=== PATIENT | female | born 1940 | race Caucasian/White ===

== ENCOUNTER 2018-05-08 18:49 | Observation (INO) | payer MEDICARE ==
[~2018-05-08] VITALS: Ht 149.9 cm; Wt 68.1 kg
[~2018-05-08 18:49] MED LIST: AMAN100C12 PO; BENZ-39 PO; BISA5TAB12 PO; CARB1TAB20 PO; CARV6.25 PO; CHOL200016 PO; CLOP75TA14 PO; CYCL30DR OU; DIVA-78 PO; DONE10TA43 PO; FAMO-135 PO; FEBU80TA PO; FURO20TA4 PO; LACT10SO8 PO; LACT10SO9 PO; LOPE2CAP PO; LORA10TA7 PO; LORA1TAB3 PO; OLAN5TAB27 PO; POTA20TA12 PO; SACU1TAB PO; WARF2.5T47 PO; WARF5TAB76 PO
[2018-05-08] MEDS ORDERED: IPRATROPIUM/ALBUTEROL SULFATE 3 ML SOLUTION IH ONE (19:19)
[2018-05-08] MEDS ORDERED: METHYLPREDNISOLONE SOD SUCC 125MG/2ML VIAL ONE (19:29)
[2018-05-08 19:30] LABS: ABG OXYGEN SATURATION 46.9 % (95.0-99.0); BASE EXCESS,VENOUS BLOOD GAS -1.9 (-2.0-3.0); HCO3,VENOUS BLOOD GAS 21.6 (21.0-28.0); PCO2,VENOUS BLOOD GAS 34 (32-45); PH,VENOUS BLOOD GAS 7.425 (7.350-7.450)
[2018-05-08 19:40] LABS: BASOPHILS % (AUTO) 0.3 % (0.0-5.0); EOSINOPHILS % (AUTO) 0.4 % (0.0-8.0); HEMATOCRIT 21.8 % (36-48); LYMPHOCYTES % (AUTO) 19.4 % (21.0-51.0); MEAN CORPUSCULAR HGB CONC 32.5 g/dL (32.0-36.0); MEAN CORPUSCULAR VOLUME 98.4 fL (79-99); NEUTROPHILS % (AUTO) 65.9 % (40.0-77.0); PLATELET COUNT (AUTO) 420 K/uL (130-400); RED BLOOD CELL COUNT(AUTO) 2.21 MIL/uL (4.00-5.50); RED CELL DISTRIBUTION WIDTH 13.1 % (11.0-15.5); WHITE BLOOD COUNT (AUTO) 17.8 K/uL (4.8-10.8)
[2018-05-08 19:52] LABS: CREATININE 1.2 mg/dL (0.5-1.5); POTASSIUM 4.2 mmol/L (3.5-5.1)
[2018-05-08 19:57] LABS: ALBUMIN 2.9 g/dL (3.5-5.0); BILIRUBIN,TOTAL 0.2 mg/dL (0.2-1.0); TOTAL PROTEIN, SERUM 5.7 g/dL (6.0-8.3)
[2018-05-08 20:04] LABS: B-TYPE NATRIURETIC PEPTIDE 208 pg/mL (0-100)
[2018-05-08] MEDS ORDERED: SODIUM CHLORIDE 0.9% 1000ML 2,000 ML IV ONE (20:50)
[2018-05-08] MEDS ORDERED: CEFTRIAXONE SODIUM 1 GM ONE (20:51)
[2018-05-08] MEDS ORDERED: AZITHROMYCIN 500MG+NS 250ML 250 ML IV ONE (20:51)
[2018-05-08] MEDS ORDERED: SODIUM CHLORIDE 0.9% 10 ML VIAL IVP PRN (21:30)
[2018-05-08] MEDS ORDERED: IPRATROPIUM/ALBUTEROL SULFATE 3 ML SOLUTION IH PRN (21:30)
[2018-05-08 23:10] VITALS: BP 106/52
[2018-05-08] MEDS: IPRATROPIUM/ALBUTEROL SULFATE 3 ML SOLUTION IH SCH (23:57)
[2018-05-09] MEDS: LEVOFLOXACIN 750 MG/D5W 150 ML 150 ML IV SCH ×2 (00:10→22:00)
[2018-05-09] MEDS ORDERED: LORAZEPAM 1 MG TABLET PO PRN (01:15)
[2018-05-09] MEDS ORDERED: BISACODYL 5 MG TABLET.DR PO PRN (01:15)
[2018-05-09] MEDS ORDERED: BENZONATATE 100 MG CAPSULE PO PRN (01:15)
[2018-05-09] MEDS ORDERED: LACTULOSE 20 GM/30 ML UDCUP PO PRN ×2 (01:15)
[2018-05-09] MEDS ORDERED: LOPERAMIDE HCL 2 MG CAP PO PRN (01:15)
[2018-05-09 03:00] VITALS: BP 116/55
[2018-05-09] MEDS: METHYLPREDNISOLONE SOD SUCC 125MG/2ML VIAL IVP SCH ×4 (05:20→21:41)
[2018-05-09 05:27] LABS: MEAN CORPUSCULAR HEMOGLOBIN 32.3 pg (27.0-33.0); MEAN CORPUSCULAR HGB CONC 33.3 g/dL (32.0-36.0); NUCLEATED RED BLOOD CELLS 0.3 % (0.0-0.19); PLATELET COUNT (AUTO) 362 K/uL (130-400); RED BLOOD CELL COUNT(AUTO) 2.11 MIL/uL (4.00-5.50); RED CELL DISTRIBUTION WIDTH 13.1 % (11.0-15.5)
[2018-05-09 05:34] LABS: HEMATOCRIT 20.4 % (36-48)
[2018-05-09 05:40] LABS: INR 1.02 (0.85-1.15); PARTIAL THROMBOPLASTIN TIME 20.1 SEC (26.3-35.5); PROTHROMBIN TIME 10.7 SEC (9.6-11.6)
[2018-05-09 05:43] LABS: ALBUMIN 2.8 g/dL (3.5-5.0); BILIRUBIN,TOTAL 0.2 mg/dL (0.2-1.0); CREATININE 1.1 mg/dL (0.5-1.5); POTASSIUM 5.1 mmol/L (3.5-5.1); TOTAL PROTEIN, SERUM 5.8 g/dL (6.0-8.3)
[2018-05-09 07:00] VITALS: BP 107/57
[2018-05-09] MEDS: IPRATROPIUM/ALBUTEROL SULFATE 3 ML SOLUTION IH SCH ×4 (07:13→23:25)
[2018-05-09] MEDS ORDERED: LIDOCAINE HCL-MPF 1% 2ML VIAL IVP PRN (07:45)
[2018-05-09] MEDS ORDERED: POTASSIUM CHLORIDE 20MEQ/100ML 100 ML IV PRN (07:45)
[2018-05-09] MEDS ORDERED: POTASSIUM CHLORIDE 20 MEQ ERTAB PO PRN (07:45)
[2018-05-09] MEDS ORDERED: FUROSEMIDE 10 MG/ML 2ML VIAL IV SCH (07:45)
[2018-05-09] MEDS ORDERED: POTASSIUM CHLORIDE 10% ELIXIR 20 MEQ/15 ML UDCUP PO PRN (07:45)
[2018-05-09] MEDS: POTASSIUM CHLORIDE 20 MEQ ERTAB PO SCH ×2 (09:00→21:00)
[2018-05-09] MEDS: FUROSEMIDE 20 MG TABLET PO SCH (09:00)
[2018-05-09] MEDS: CYCLOSPORINE OU SCH (09:00)
[2018-05-09] MEDS: ***HM***(Sacubitril/Valsartan (Entresto 24 mg-26 mg Tablet) 1 EACH PO SCH ×2 (09:00→21:00)
[2018-05-09] MEDS: CHOLECALCIFEROL 2000 UNIT PO SCH (09:00)
[2018-05-09] MEDS: CARBIDOPA-LEVODOPA 25-100 TAB PO SCH ×3 (09:00→21:41)
[2018-05-09] MEDS ORDERED: PANTOPRAZOLE 40 MG/VIAL IVP SCH (09:00)
[2018-05-09] MEDS: CLOPIDOGREL BISULFATE 75 MG TAB PO SCH (09:55)
[2018-05-09] MEDS: DONEPEZIL HCL 5 MG TAB PO SCH (09:55)
[2018-05-09] MEDS: CARVEDILOL 6.25 MG TABLET PO SCH ×2 (09:56→21:41)
[2018-05-09] MEDS: AMANTADINE HCL 100 MG CAPSULE PO SCH (09:56)
[2018-05-09] MEDS: FAMOTIDINE 20MG TAB 20 MG TAB PO SCH (09:56)
[2018-05-09] MEDS: DIVALPROEX SODIUM 250 MG TABLET.DR PO SCH ×2 (09:57→21:41)
[2018-05-09] MEDS: IRON SUCROSE COMPLEX 200 MG in SODIUM CHLORIDE 0.9% 50 ML IV SCH (09:58)
[2018-05-09] MEDS: LORATADINE 10 MG TABLET PO SCH (10:05)
[2018-05-09] MEDS ORDERED: SODIUM CHLORIDE 0.9% 250 ML IV ONE (10:46)
[2018-05-09 11:00] VITALS: BP 101/52
[2018-05-09] MEDS ORDERED: COMPOUND IV MISC 1 EACH IVSOLN MISC PRN (12:45)
[2018-05-09 16:00] VITALS: BP 113/53
[2018-05-09] MEDS ORDERED: WARFARIN SODIUM 5 MG TAB PO SCH (16:00)
[2018-05-09] MEDS ORDERED: WARFARIN SODIUM 2.5 MG TAB PO SCH (16:00)
--- NOTE | 2018-05-09 17:36 | NUR ---
cm note dr coats notified by Guerda matthews, RNCM dir. pt meets ip criteria. per md will reevaluate pt in am for admit status.leave obs for now
[2018-05-09 20:33] VITALS: BP 108/55
[2018-05-09] MEDS ORDERED: FEBUXOSTAT 80 MG PO SCH (21:00)
[2018-05-09] MEDS ORDERED: OLANZAPINE 5 MG TAB PO SCH (21:00)
[2018-05-09 23:14] LABS: HEMATOCRIT 28.4 % (36-48)
[2018-05-10 01:34] VITALS: BP 101/55
[2018-05-10 04:44] VITALS: BP 96/55
[2018-05-10 05:46] LABS: HEMATOCRIT 27.9 % (36-48); MEAN CORPUSCULAR HEMOGLOBIN 30.6 pg (27.0-33.0); MEAN CORPUSCULAR HGB CONC 33.8 g/dL (32.0-36.0); MEAN CORPUSCULAR VOLUME 90.4 fL (79-99); NUCLEATED RED BLOOD CELLS 0.5 % (0.0-0.19); PLATELET COUNT (AUTO) 280 K/uL (130-400); RED BLOOD CELL COUNT(AUTO) 3.08 MIL/uL (4.00-5.50); RED CELL DISTRIBUTION WIDTH 15.8 % (11.0-15.5); WHITE BLOOD COUNT (AUTO) 16.9 K/uL (4.8-10.8)
[2018-05-10 06:03] LABS: ALBUMIN 2.6 g/dL (3.5-5.0); BILIRUBIN,TOTAL 0.4 mg/dL (0.2-1.0); CREATININE 1.4 mg/dL (0.5-1.5); POTASSIUM 4.6 mmol/L (3.5-5.1); TOTAL PROTEIN, SERUM 5.2 g/dL (6.0-8.3)
[2018-05-10] MEDS: IPRATROPIUM/ALBUTEROL SULFATE 3 ML SOLUTION IH SCH ×2 (06:58→11:05)
[2018-05-10 07:00] VITALS: BP 99/52
[2018-05-10] MEDS ORDERED: FUROSEMIDE 10 MG/ML 4ML VIAL IV SCH (07:00)
[2018-05-10] MEDS ORDERED: PANTOPRAZOLE SODIUM 40 MG TABLET.DR PO SCH (08:28)
[2018-05-10] MEDS: IRON SUCROSE COMPLEX 200 MG in SODIUM CHLORIDE 0.9% 50 ML IV SCH (08:56)
[2018-05-10] MEDS: CLOPIDOGREL BISULFATE 75 MG TAB PO SCH (08:59)
[2018-05-10] MEDS: CHOLECALCIFEROL 2000 UNIT PO SCH (09:00)
[2018-05-10] MEDS: FUROSEMIDE 20 MG TABLET PO SCH (09:00)
[2018-05-10] MEDS: CYCLOSPORINE OU SCH (09:00)
[2018-05-10] MEDS: ***HM***(Sacubitril/Valsartan (Entresto 24 mg-26 mg Tablet) 1 EACH PO SCH (09:00)
[2018-05-10] MEDS: DIVALPROEX SODIUM 250 MG TABLET.DR PO SCH (09:00)
[2018-05-10] MEDS: DONEPEZIL HCL 5 MG TAB PO SCH (09:01)
[2018-05-10] MEDS: LORATADINE 10 MG TABLET PO SCH (09:01)
[2018-05-10] MEDS: CARBIDOPA-LEVODOPA 25-100 TAB PO SCH (09:01)
[2018-05-10] MEDS: CARVEDILOL 6.25 MG TABLET PO SCH (09:01)
[2018-05-10] MEDS: POTASSIUM CHLORIDE 20 MEQ ERTAB PO SCH (09:02)
[2018-05-10] MEDS: FAMOTIDINE 20MG TAB 20 MG TAB PO SCH (09:02)
[2018-05-10] MEDS: METHYLPREDNISOLONE SOD SUCC 125MG/2ML VIAL IVP SCH (09:05)
[2018-05-10] MEDS: AMANTADINE HCL 100 MG CAPSULE PO SCH (09:13)
[2018-05-10 11:00] VITALS: BP 114/49
== END 2018-05-10 12:30 | disposition home or self-care (01) ==
LOC: EDH 18:49 → EDHIP 20:40 → 3DH 23:52
PROVIDERS: ADMIT Internal Medicine; ATTEND Internal Medicine
DX: D50.0 Iron deficiency anemia secondary to blood loss (chronic) (principal); J18.9 Pneumonia, unspecified organism; I25.5 Ischemic cardiomyopathy; I25.10 Atherosclerotic heart disease of native coronary artery without angina pectoris; I48.91 Unspecified atrial fibrillation; J44.0 Chronic obstructive pulmonary disease with (acute) lower respiratory infection; D68.9 Coagulation defect, unspecified; J44.1 Chronic obstructive pulmonary disease with (acute) exacerbation; I11.0 Hypertensive heart disease with heart failure; I50.22 Chronic systolic (congestive) heart failure; F31.9 Bipolar disorder, unspecified; Z79.01 Long term (current) use of anticoagulants
CPT/HCPCS: 36415 ×3; 36430; 36600; 71045; 80053 ×3; 82803; 83880; 84484; 85014; 85018; 85025; 85027 ×2; 85610; 85730; 86850; 86900; 86901; 86922; 87040 ×2; 87804 ×2; 93005; 94640 ×8; 94664; 96365; 96366; 96375; 96376 ×2; 99284; A4600; G0378 ×40; J0456; J0696; J1756 ×2; J1940 ×2; J1956 ×2; J2930 ×5; J7030 ×2; P9016 ×2; C9113

== ENCOUNTER 2018-05-28 09:15 | Observation (INO) | payer MEDICARE ==
[~2018-05-28] VITALS: Ht 149.9 cm; Wt 67.8 kg
[2018-05-28] MEDS ORDERED: SODIUM CHLORIDE 0.9% 500ML 500 ML IV ONE (09:50)
[2018-05-28 10:30] LABS: BASOPHILS % (AUTO) 0.2 % (0.0-5.0); EOSINOPHILS % (AUTO) 0.8 % (0.0-8.0); HEMATOCRIT 33.2 % (36-48); LYMPHOCYTES % (AUTO) 13.4 % (21.0-51.0); MEAN CORPUSCULAR HEMOGLOBIN 32.7 pg (27.0-33.0); MEAN CORPUSCULAR HGB CONC 33.5 g/dL (32.0-36.0); MEAN CORPUSCULAR VOLUME 97.9 fL (79-99); MONOCYTES % (AUTO) 7.1 % (3.0-13.0); NEUTROPHILS % (AUTO) 78.5 % (40.0-77.0); PLATELET COUNT (AUTO) 212 K/uL (130-400); RED BLOOD CELL COUNT(AUTO) 3.39 MIL/uL (4.00-5.50); RED CELL DISTRIBUTION WIDTH 18.4 % (11.0-15.5); WHITE BLOOD COUNT (AUTO) 8.8 K/uL (4.8-10.8)
[2018-05-28 10:38] LABS: CREATININE 1.5 mg/dL (0.5-1.5); POTASSIUM 4.3 mmol/L (3.5-5.1)
[2018-05-28 10:42] LABS: ALBUMIN 2.8 g/dL (3.5-5.0); BILIRUBIN,DIRECT 0.2 mg/dL (0.0-0.3); BILIRUBIN,TOTAL 0.9 mg/dL (0.2-1.0); TOTAL PROTEIN, SERUM 5.4 g/dL (6.0-8.3)
[2018-05-28 10:45] LABS: CREATINE KINASE, TOTAL 12 U/L (21-232); LIPASE 98 U/L (114-286)
[2018-05-28 10:47] LABS: PARTIAL THROMBOPLASTIN TIME 24.3 SEC (26.3-35.5); PROTHROMBIN TIME 10.5 SEC (9.6-11.6)
[2018-05-28 11:01] LABS: BILIRUBIN,URINE Negative (NEGATIVE); COLOR,URINE Dark Yellow (YELLOW); GLUCOSE, URINE (UA) Negative (NEGATIVE); KETONES,URINE Trace mg/dL (NEGATIVE); LEUKOCYTE ESTERASE ,URINE Negative (NEGATIVE); NITRATE,URINE Negative (NEGATIVE); OCCULT BLOOD,URINE Negative (NEGATIVE); PROTEIN,URINE Negative (NEGATIVE)
[2018-05-28 11:25] LABS: APPEARANCE,URINE CLEAR (CLEAR)
[2018-05-28 11:27] LABS: BACTERIA,URINE Rare /HPF (None Seen); RBC,URINE 0-1 /HPF (0-1); SQUAMOUS EPITHELIAL CELL,UR Rare /HPF (0-2); WBC,URINE 0-1 /HPF (0-1)
[2018-05-28] MEDS ORDERED: SODIUM CHLORIDE 0.9% 10 ML VIAL IVP PRN (12:15)
[2018-05-28] MEDS ORDERED: SODIUM CHLORIDE 0.9% 1000ML 1,000 ML IV ONE (20:30)
[2018-05-28 22:34] LABS: HEMATOCRIT 31.7 % (36-48)
[2018-05-29 00:20] VITALS: BP 108/59
--- NOTE | 2018-05-29 00:20 | NUR ---
ADMIT PT ADMITTED TO ROOM 303,AAO BUT IS VERY FORGETFUL. ADMISSION CARE DONE. V/S MONITORED, STABLE. ADMISSION CARE DONE. ADMISSION DATA BASE COMPLETED. PT HAS EPISODE OF LOOSE STOOLS COLORED BURGUNDY. CLEANED PT AND NOTED REDNESS TO BILATERAL BUTTOCKS. PICTURES TAKEN THEN PLACED IN CHART. WEIGHED PT VIA SLING THEN PLACED COMFORTABLY IN BED. KEPT WARM AND COMFORTABLE. PLACED PT NPO PER DR GUMZAN ORDER. IN FOR MORE CARE AND MANAGEMENT. Addendum: 05/29/18 at 0131 by LIVE SAUCEDO RN RN Amended: Links added.
[2018-05-29] MEDS ORDERED: APIX2.5T PO (01:42)
[2018-05-29] MEDS ORDERED: LORAZEPAM 1 MG TABLET PO PRN (01:45)
[2018-05-29] MEDS ORDERED: BENZONATATE 100 MG CAPSULE PO PRN (01:45)
[2018-05-29] MEDS: SODIUM CHLORIDE 0.9% 1000ML 1,000 ML IV SCH ×3 (01:45→23:20)
[2018-05-29] MEDS ORDERED: BISACODYL 5 MG TABLET.DR PO PRN (01:45)
[2018-05-29] MEDS ORDERED: LOPERAMIDE HCL 2 MG CAP PO PRN (01:45)
[2018-05-29] MEDS ORDERED: LACTULOSE 20 GM/30 ML UDCUP PO PRN ×2 (01:45→06:45)
--- NOTE | 2018-05-29 02:24 | NUR ---
ROUNDS PT RESTING WELL, FAIRLY ASLEEP WITH RESPIRATIONS EVEN AND UNLABORED. NO NOTED DISTRESS. KEPT UNDISTURBED FOR NOW. WILL CONTINUE TO MONITOR.
[2018-05-29 04:00] VITALS: BP 123/59
[2018-05-29 05:33] LABS: HEMATOCRIT 30.3 % (36-48); MEAN CORPUSCULAR HEMOGLOBIN 32.7 pg (27.0-33.0); MEAN CORPUSCULAR HGB CONC 33.8 g/dL (32.0-36.0); MEAN CORPUSCULAR VOLUME 96.9 fL (79-99); PLATELET COUNT (AUTO) 180 K/uL (130-400); RED BLOOD CELL COUNT(AUTO) 3.13 MIL/uL (4.00-5.50); RED CELL DISTRIBUTION WIDTH 18.1 % (11.0-15.5); WHITE BLOOD COUNT (AUTO) 7.7 K/uL (4.8-10.8)
[2018-05-29 05:48] LABS: ALBUMIN 2.5 g/dL (3.5-5.0); BILIRUBIN,TOTAL 0.6 mg/dL (0.2-1.0); CREATININE 1.2 mg/dL (0.5-1.5); POTASSIUM 3.6 mmol/L (3.5-5.1); TOTAL PROTEIN, SERUM 5.1 g/dL (6.0-8.3)
--- NOTE | 2018-05-29 07:02 | NUR ---
MD DR LAI IN TO SEE PT. NEW ORDERS GIVEN, PLEASE REFER TO CPOE. ENDORSING TO AM SHIFT FOR MORE CARE AND MANAGEMENT.
[2018-05-29] MEDS ORDERED: COMPOUND IV MISC 1 EACH IVSOLN MISC PRN (07:45)
[2018-05-29 08:00] VITALS: BP 105/40
[2018-05-29] MEDS: AMANTADINE HCL 100 MG CAPSULE PO SCH (09:00)
[2018-05-29] MEDS: DONEPEZIL HCL 5 MG TAB PO SCH (09:00)
[2018-05-29] MEDS: LORATADINE 10 MG TABLET PO SCH (09:00)
[2018-05-29] MEDS: DIVALPROEX SODIUM 250 MG TABLET.DR PO SCH ×2 (09:00→21:36)
[2018-05-29] MEDS: CARVEDILOL 6.25 MG TABLET PO SCH ×2 (09:00→21:37)
[2018-05-29] MEDS: FUROSEMIDE 20 MG TABLET PO SCH (09:00)
[2018-05-29] MEDS: CARBIDOPA-LEVODOPA 25-100 TAB PO SCH ×3 (09:00→21:36)
[2018-05-29] MEDS: **HM** ENTRESTO 24-26MG PO SCH ×2 (09:00→21:00)
[2018-05-29] MEDS ORDERED: IRON SUCROSE COMPLEX 200 MG in SODIUM CHLORIDE 0.9% 50 ML IV SCH (09:00)
[2018-05-29] MEDS: FAMOTIDINE 20MG TAB 20 MG TAB PO SCH (09:00)
[2018-05-29] MEDS: **HM** RESTASIS OPTHL. OU SCH (09:00)
[2018-05-29] MEDS: POTASSIUM CHLORIDE 20 MEQ ERTAB PO SCH ×2 (09:00→21:36)
[2018-05-29] MEDS: [UNRECOGNIZED DRUG - OTHER] PO SCH (09:00)
[2018-05-29] MEDS: PANTOPRAZOLE 40 MG/VIAL IVP SCH (09:17)
--- NOTE | 2018-05-29 10:14 | NUR ---
C consult Patient assessed as ordered. [facility] recommendations submitted.
--- NOTE | 2018-05-29 10:25 | NUR ---
Nutrition Intervention: Nutrition consult due to admit trigger. Pt. admitted with Dx of Lower GI Bleed. Pt. asleep during visit. Pt. NPO. Labs reviewed(Alb 2.5). LBM: 05/29/18. SR-13, buttock redness. BMI: 30.2, overweight for age. Recommendations: 1) When medically feasible, rec. advance diet as tolerated to Heart Healthy diet with 30ml ProMod BID. 2) Continue to monitor pt's nutritional status and diet advancement 3) Consult RD as nutrition concerns arise. Addendum: 05/29/18 at [address] Amended: Links added.
--- NOTE | 2018-05-29 11:14 | NUR ---
TRIGGER RECEIVED. Pt IS A 77 YEAR OLD FEMALE ADMITTED SECONDARY TO LOWER GI BLEED. Pt HAS A PAST MEDICAL HISTORY SIGNIFICANT FOR ISCHEMIC CARDIOMYOPATHY, CORONARY ARTERY DISEASE, ATRIAL FIBRILLATION, ASTHMA, CHRONIC SYSTOLIC HEART FAILURE, AND BIPOLAR DISORDER. Pt CURRENTLY NPO PENDING PROCEDURE. PER Pt, SHE DOES NOT HAVE ANY ISSUES SWALLOWING AT THIS TIME. SHE STATES THAT SHE WAS DIAGNOSED WITH BRONCHITIS RECENTLY. NO HISTORY OF CVA OR DYSPHAGIA IN Pt'S PAST MEDICAL HISTORY. PLEASE REQUEST A FORMAL EVALUATION IF Pt PRESENTS WITH S/S OF ASPIRATION SUCH COUGHING, THROAT CLEARING OR WET VOCAL QUALITY AT MEAL TIMES. Addendum: 05/29/18 at 1118 by MAURO LUJAN [facility] Amended: Links added.
[2018-05-29 12:00] VITALS: BP 106/43
[2018-05-29 16:00] VITALS: BP 114/52
--- NOTE | 2018-05-29 19:50 | NUR ---
PM Assessment Received pt back from bleeding scan procedure with pending result, no family around. Routine assessment done, plan of care discuss, pt noted able to respond appropriately on simple open ended questions. Pt currently denies discomfort, stated live at [facility] living. Current IV access noted infiltrated, pt claimed felt sore, site swollen, negative blood return,discontinued aseptically, new site initiated aseptically to the right hand with good blood return.NS at 100cc/hr re-started. Pt aware plan d/c home tomorrow.
[2018-05-29 19:55] VITALS: BP 134/58
[2018-05-29] MEDS ORDERED: OLANZAPINE 5 MG TAB PO SCH (21:00)
[2018-05-30 00:07] VITALS: BP 93/42
[2018-05-30 03:50] VITALS: BP 120/63
[2018-05-30] MEDS ORDERED: PHARMACY COMMUNICATION MISC SCH (07:30)
[2018-05-30] MEDS ORDERED: IRON SUCROSE COMPLEX 200 MG in SODIUM CHLORIDE 0.9% 50 ML IV SCH (07:45)
[2018-05-30 08:00] VITALS: BP 112/54
[2018-05-30] MEDS: **HM** RESTASIS OPTHL. OU SCH (09:00)
[2018-05-30] MEDS: **HM** ENTRESTO 24-26MG PO SCH (09:00)
[2018-05-30] MEDS: [UNRECOGNIZED DRUG - OTHER] PO SCH (09:00)
[2018-05-30] MEDS: DONEPEZIL HCL 5 MG TAB PO SCH (10:03)
[2018-05-30] MEDS: DIVALPROEX SODIUM 250 MG TABLET.DR PO SCH (10:04)
[2018-05-30] MEDS: CARVEDILOL 6.25 MG TABLET PO SCH (10:04)
[2018-05-30] MEDS: CARBIDOPA-LEVODOPA 25-100 TAB PO SCH ×2 (10:04→14:09)
[2018-05-30] MEDS: AMANTADINE HCL 100 MG CAPSULE PO SCH (10:04)
[2018-05-30] MEDS: LORATADINE 10 MG TABLET PO SCH (10:04)
[2018-05-30] MEDS: FUROSEMIDE 20 MG TABLET PO SCH (10:05)
[2018-05-30] MEDS: FAMOTIDINE 20MG TAB 20 MG TAB PO SCH (10:05)
[2018-05-30] MEDS: POTASSIUM CHLORIDE 20 MEQ ERTAB PO SCH (10:05)
[2018-05-30] MEDS: PANTOPRAZOLE 40 MG/VIAL IVP SCH (10:06)
[2018-05-30] MEDS: SODIUM CHLORIDE 0.9% 1000ML 1,000 ML IV SCH (10:07)
[2018-05-30 12:00] VITALS: BP 108/62
[2018-05-30 16:00] VITALS: BP 104/79
--- NOTE | 2018-05-30 18:00 | NUR ---
PATIENT'S PROVIDER HERE TO TRANSPORT PATIENT BACK TO [place]. DISCHARGE INFORMATION GIVEN TO PATIENT . ALL QUESTIONS ANSWERED. IV DISCONTINUED WITH INNER CANNULA INTACT.
== END 2018-05-30 18:15 | disposition home or self-care (01) ==
LOC: EDH 09:15 → EDHIP 12:01 → 3AH 23:30
PROVIDERS: ADMIT Internal Medicine; ATTEND Internal Medicine
DX: K92.2 Gastrointestinal hemorrhage, unspecified (principal); I48.91 Unspecified atrial fibrillation; I25.5 Ischemic cardiomyopathy; I25.10 Atherosclerotic heart disease of native coronary artery without angina pectoris; I50.32 Chronic diastolic (congestive) heart failure; J44.9 Chronic obstructive pulmonary disease, unspecified; Z95.0 Presence of cardiac pacemaker; Z86.73 Personal history of transient ischemic attack (TIA), and cerebral infarction without residual deficits; Z79.01 Long term (current) use of anticoagulants
CPT/HCPCS: 36415 ×2; 74176; 78278; 80048; 80053; 80076; 81001; 82270; 82550; 83690; 84484; 85014; 85018; 85025; 85027; 85610; 85730; 86850; 86900; 86901; 87040 ×2; 93005 ×2; 96365; 96375; 96376; 99284; A9512; C9113 ×2; G0378 ×54; J1756 ×2; J7030; J7040

== ENCOUNTER 2018-06-19 16:38 | Emergency (ER) | payer MEDICARE ==
[~2018-06-19 16:38] MED LIST changes: +APIX2.5T PO; -FEBU80TA PO; -WARF2.5T47 PO; -WARF5TAB76 PO
== END 2018-06-19 19:49 | disposition home or self-care (01) ==
LOC: EDH 16:38
DX: S00.03XA Contusion of scalp, initial encounter (principal); G20 Parkinson's disease; I10 Essential (primary) hypertension; I25.10 Atherosclerotic heart disease of native coronary artery without angina pectoris; F03.90 Unspecified dementia, unspecified severity, without behavioral disturbance, psychotic disturbance, mood disturbance, and anxiety; E78.5 Hyperlipidemia, unspecified; Z86.73 Personal history of transient ischemic attack (TIA), and cerebral infarction without residual deficits; W01.198A Fall on same level from slipping, tripping and stumbling with subsequent striking against other object, initial encounter; Y93.01 Activity, walking, marching and hiking; Y92.89 Other specified places as the place of occurrence of the external cause; Y99.8 Other external cause status
CPT/HCPCS: 70450; 72125

== ENCOUNTER 2018-11-18 15:23 | Inpatient (IN) | payer MEDICARE ==
[~2018-11-18] VITALS: Ht 152.4 cm; Wt 65.4 kg
[2018-11-18 15:44] LABS: BASOPHILS % (AUTO) 0.5 % (0.0-5.0); EOSINOPHILS % (AUTO) 2.6 % (0.0-8.0); HEMATOCRIT 43.3 % (36-48); LYMPHOCYTES % (AUTO) 16.3 % (21.0-51.0); MEAN CORPUSCULAR HEMOGLOBIN 31.8 pg (27.0-33.0); MEAN CORPUSCULAR HGB CONC 33.5 g/dL (32.0-36.0); MEAN CORPUSCULAR VOLUME 94.9 fL (79-99); MONOCYTES % (AUTO) 10.6 % (3.0-13.0); PLATELET COUNT (AUTO) 244 K/uL (130-400); RED BLOOD CELL COUNT(AUTO) 4.56 MIL/uL (4.00-5.50); RED CELL DISTRIBUTION WIDTH 13.8 % (11.0-15.5); WHITE BLOOD COUNT (AUTO) 6.2 K/uL (4.8-10.8)
[2018-11-18] MEDS ORDERED: FUROSEMIDE 10 MG/ML 2ML VIAL ONE ×2 (15:56→16:31)
[2018-11-18] MEDS ORDERED: SODIUM CHLORIDE 0.9% 50 ML IV ONE (15:57)
[2018-11-18] MEDS ORDERED: CEFTRIAXONE SODIUM 1 GM ONE (15:57)
[2018-11-18 16:08] LABS: B-TYPE NATRIURETIC PEPTIDE 2420 pg/mL (0-100)
[2018-11-18] MEDS ORDERED: LEVOFLOXACIN 500 MG/D5W 100 ML 100 ML ONE (16:17)
[2018-11-18 16:38] LABS: POTASSIUM 4.9 mmol/L (3.5-5.1)
[2018-11-18 18:49] VITALS: BP 114/74
[2018-11-18] MEDS: FUROSEMIDE 10 MG/ML 4ML VIAL IVP SCH (21:39)
[2018-11-18] MEDS: IPRATROPIUM/ALBUTEROL SULFATE 3 ML SOLUTION IH SCH (21:47)
[2018-11-18 23:40] VITALS: BP 124/69
[2018-11-19 03:40] VITALS: BP 138/82
[2018-11-19] MEDS ORDERED: AMAN100C12 PO (04:52)
[2018-11-19] MEDS ORDERED: APIX2.5T PO (04:52)
[2018-11-19] MEDS ORDERED: POTA20TA12 PO (04:52)
[2018-11-19] MEDS ORDERED: FEBU80TA PO (04:52)
[2018-11-19] MEDS ORDERED: CARV6.25 PO (04:52)
[2018-11-19] MEDS ORDERED: DIVA-78 PO (04:52)
[2018-11-19] MEDS ORDERED: CARB1TAB20 PO (04:52)
[2018-11-19] MEDS ORDERED: CHOL200016 PO (04:52)
[2018-11-19] MEDS ORDERED: FAMO-135 PO (04:52)
[2018-11-19] MEDS ORDERED: DONE5TAB33 PO (04:52)
[2018-11-19] MEDS ORDERED: CYCL30DR OU (04:52)
[2018-11-19] MEDS ORDERED: LORA10TA7 PO (04:52)
[2018-11-19] MEDS ORDERED: FURO20TA6 PO (04:52)
[2018-11-19] MEDS ORDERED: CLOP75TA14 PO (04:52)
[2018-11-19] MEDS ORDERED: OLAN5TAB27 PO (04:52)
[2018-11-19] MEDS ORDERED: SACU1TAB PO (04:52)
[2018-11-19] MEDS: FUROSEMIDE 10 MG/ML 4ML VIAL IVP SCH (05:09)
[2018-11-19 05:49] LABS: BASOPHILS % (AUTO) 0.5 % (0.0-5.0); EOSINOPHILS % (AUTO) 2.9 % (0.0-8.0); HEMATOCRIT 42.1 % (36-48); LYMPHOCYTES % (AUTO) 22.2 % (21.0-51.0); MEAN CORPUSCULAR HEMOGLOBIN 31.9 pg (27.0-33.0); MEAN CORPUSCULAR HGB CONC 33.4 g/dL (32.0-36.0); MEAN CORPUSCULAR VOLUME 95.4 fL (79-99); MONOCYTES % (AUTO) 14.4 % (3.0-13.0); PLATELET COUNT (AUTO) 191 K/uL (130-400); RED BLOOD CELL COUNT(AUTO) 4.41 MIL/uL (4.00-5.50); RED CELL DISTRIBUTION WIDTH 13.9 % (11.0-15.5); WHITE BLOOD COUNT (AUTO) 6.1 K/uL (4.8-10.8)
[2018-11-19 05:59] LABS: ALBUMIN 2.8 g/dL (3.5-5.0); BILIRUBIN,TOTAL 0.4 mg/dL (0.2-1.0); CREATININE 1.1 mg/dL (0.5-1.5); POTASSIUM 3.8 mmol/L (3.5-5.1); TOTAL PROTEIN, SERUM 6.8 g/dL (6.0-8.3)
[2018-11-19] MEDS: IPRATROPIUM/ALBUTEROL SULFATE 3 ML SOLUTION IH SCH ×3 (06:40→21:00)
[2018-11-19] MEDS: CARBIDOPA-LEVODOPA 25-100 TAB PO SCH ×3 (06:57→17:25)
[2018-11-19] MEDS ORDERED: ACETAMINOPHEN 325 MG TAB PO PRN ×2 (07:15)
[2018-11-19] MEDS ORDERED: ONDANSETRON HCL 4 MG/2 ML VIAL IVP PRN (07:15)
[2018-11-19 08:30] VITALS: BP 99/30
[2018-11-19] MEDS: VALSARTAN PO SCH ×2 (09:00→21:00)
[2018-11-19] MEDS: SACUBITRIL PO SCH ×2 (09:00→21:00)
[2018-11-19] MEDS: VITAMIN D3 2000 UNIT PO SCH (09:00)
[2018-11-19] MEDS: CYCLOSPORINE OU SCH (09:00)
[2018-11-19] MEDS: CARVEDILOL 6.25 MG TABLET PO SCH ×2 (09:00→20:54)
[2018-11-19] MEDS: CLOPIDOGREL BISULFATE 75 MG TAB PO SCH (10:04)
[2018-11-19] MEDS: FAMOTIDINE 20MG TAB 20 MG TAB PO SCH (10:04)
[2018-11-19] MEDS: POTASSIUM CHLORIDE 20 MEQ ERTAB PO SCH ×2 (10:05→20:53)
[2018-11-19] MEDS: CETIRIZINE HCL 5 MG TABLET PO SCH (10:05)
[2018-11-19] MEDS: AMANTADINE HCL 100 MG CAPSULE PO SCH (10:05)
[2018-11-19] MEDS: OLANZAPINE 5 MG TAB PO SCH (10:06)
[2018-11-19] MEDS: DIVALPROEX SODIUM 250 MG TABLET.DR PO SCH ×2 (10:06→20:54)
[2018-11-19] MEDS: APIXABAN 2.5 MG TABLET PO SCH ×2 (10:06→20:53)
[2018-11-19] MEDS: FUROSEMIDE 40 MG TABLET PO SCH ×2 (10:06→17:25)
[2018-11-19] MEDS: DONEPEZIL HCL 5 MG TAB PO SCH (10:06)
[2018-11-19 11:00] VITALS: BP 90/53
--- NOTE | 2018-11-19 13:10 | NUR ---
DCP CM met with pt discussed dc plans. Pt is semi-independent prior to admission, lives at [facility]. Has a walker and [facility] who checks on pt at home. Denies any other equipments/services. Feels safe to go back home, spouse able to assist with transportation and needs as necessary. DC plan back to [facility] once stable via their transport van. CM to cont to follow up. Addendum: 11/19/18 at 1312 by EVELYN CORNEJO LVN CM Amended: Links added.
--- NOTE | 2018-11-19 14:56 | NUR ---
RD NOTIFICATION Primary Diagnosis: CHF Exacerbation. HX: TIA, HTN, High cholesterol, COPD. Pt currently on Heart Healthy diet. LBM: 11/17. BMI is 27; classified as overweight. Skin is intact and no edema present. Meds: Duoneb, Eliquis, Amantadine, Plavix, Pepcid, Zyprexia, Zofran. Labs: Na 146, GFR 51, ALT 7, ALB 2.8, CO2 33. Pt is only eating 25% as per nurse. Pt has appetite only sometimes. No difficulty chewing or swallowing. RD recommends to continue current diet and offer Ensure TID. RD will continue to monitor PO intake and weight changes. Please notify RD if any nutritional concerns arise. Thank you. Addendum: 11/19/18 at [address] Amended: Links added.
[2018-11-19 15:31] LABS: APPEARANCE,URINE Clear (CLEAR); BILIRUBIN,URINE Negative (NEGATIVE); COLOR,URINE Yellow (YELLOW); GLUCOSE, URINE (UA) Negative (NEGATIVE); KETONES,URINE Negative (NEGATIVE); LEUKOCYTE ESTERASE ,URINE Large (NEGATIVE); NITRATE,URINE Negative (NEGATIVE); OCCULT BLOOD,URINE Large (NEGATIVE); PROTEIN,URINE Negative (NEGATIVE); UROBILINOGEN,URINE 0.2 mg/dL (0.2-1.0)
[2018-11-19 15:38] LABS: BACTERIA,URINE Few /HPF (None Seen); SQUAMOUS EPITHELIAL CELL,UR 0-2 /HPF (0-2)
[2018-11-19 16:00] VITALS: BP 105/46
[2018-11-19 20:02] VITALS: BP 116/47
--- NOTE | 2018-11-19 20:11 | NUR ---
DR. LAI PAGED TO SEE IF HE WANTS TO RESTART LEVAQUIN OR ROCEPHIN. AWAITING IS TECHNICIAN BACK . ONCOMING NURSE DIMITRI MCCOY NOTIFIED. TO CONTINUE PAGING DR. LAI
[2018-11-19] MEDS: FEBUXOSTAT 80 MG PO SCH (20:59)
[2018-11-19] MEDS: CEFTRIAXONE SODIUM 1 GM IVP SCH (21:21)
[2018-11-19] MEDS ORDERED: LEVOFLOXACIN 500 MG/D5W 100 ML 100 ML IV ONE (22:00)
[2018-11-19] MEDS ORDERED: SODIUM CHLORIDE 0.9% 100 ML IV ONE (22:01)
[2018-11-20 00:46] VITALS: BP 81/58
[2018-11-20 04:19] VITALS: BP 90/52
[2018-11-20 04:57] LABS: MEAN CORPUSCULAR HEMOGLOBIN 31.8 pg (27.0-33.0); MEAN CORPUSCULAR HGB CONC 33.7 g/dL (32.0-36.0); MEAN CORPUSCULAR VOLUME 94.5 fL (79-99); PLATELET COUNT (AUTO) 187 K/uL (130-400); RED BLOOD CELL COUNT(AUTO) 4.13 MIL/uL (4.00-5.50); RED CELL DISTRIBUTION WIDTH 13.9 % (11.0-15.5); WHITE BLOOD COUNT (AUTO) 7.2 K/uL (4.8-10.8)
[2018-11-20 05:06] LABS: CREATININE 1.6 mg/dL (0.5-1.5); POTASSIUM 4.7 mmol/L (3.5-5.1)
[2018-11-20] MEDS: IPRATROPIUM/ALBUTEROL SULFATE 3 ML SOLUTION IH SCH ×3 (06:23→21:47)
[2018-11-20] MEDS ORDERED: FUROSEMIDE 10 MG/ML 4ML VIAL IV SCH (06:45)
[2018-11-20 08:00] VITALS: BP 114/47
[2018-11-20] MEDS: DIVALPROEX SODIUM 250 MG TABLET.DR PO SCH ×2 (08:30→21:41)
[2018-11-20] MEDS: POTASSIUM CHLORIDE 20 MEQ ERTAB PO SCH ×2 (08:31→21:41)
[2018-11-20] MEDS: CLOPIDOGREL BISULFATE 75 MG TAB PO SCH (08:31)
[2018-11-20] MEDS: FUROSEMIDE 40 MG TABLET PO SCH ×2 (08:31→16:58)
[2018-11-20] MEDS: APIXABAN 2.5 MG TABLET PO SCH ×2 (08:31→21:40)
[2018-11-20] MEDS: CARVEDILOL 6.25 MG TABLET PO SCH ×2 (08:32→21:40)
[2018-11-20] MEDS: CARBIDOPA-LEVODOPA 25-100 TAB PO SCH ×3 (08:32→16:58)
[2018-11-20] MEDS: OLANZAPINE 5 MG TAB PO SCH (08:32)
[2018-11-20] MEDS: FAMOTIDINE 20MG TAB 20 MG TAB PO SCH (08:33)
[2018-11-20] MEDS: CETIRIZINE HCL 5 MG TABLET PO SCH (08:34)
[2018-11-20] MEDS: CYCLOSPORINE OU SCH (08:34)
[2018-11-20] MEDS: DONEPEZIL HCL 5 MG TAB PO SCH (08:34)
[2018-11-20] MEDS: VITAMIN D3 2000 UNIT PO SCH (08:35)
[2018-11-20] MEDS: SACUBITRIL PO SCH ×2 (08:35→21:00)
[2018-11-20] MEDS: VALSARTAN PO SCH ×2 (08:35→21:00)
[2018-11-20 12:00] VITALS: BP 85/31
[2018-11-20] MEDS: AMANTADINE HCL 100 MG CAPSULE PO SCH (12:17)
[2018-11-20 16:00] VITALS: BP 91/65
[2018-11-20 20:00] VITALS: BP 120/60
[2018-11-20] MEDS: FEBUXOSTAT 80 MG PO SCH (21:00)
[2018-11-20] MEDS: CEFTRIAXONE SODIUM 1 GM IVP SCH (21:40)
[2018-11-20] MEDS ORDERED: LEVOFLOXACIN 250 MG/D5W 50ML 50 ML IV ONE (22:00)
[2018-11-21] VITALS: BP 96/53
[2018-11-21 04:00] VITALS: BP 98/55
[2018-11-21 05:56] LABS: HEMATOCRIT 38.9 % (36-48); MEAN CORPUSCULAR HEMOGLOBIN 32.2 pg (27.0-33.0); MEAN CORPUSCULAR VOLUME 94.7 fL (79-99); PLATELET COUNT (AUTO) 168 K/uL (130-400); RED BLOOD CELL COUNT(AUTO) 4.11 MIL/uL (4.00-5.50); RED CELL DISTRIBUTION WIDTH 13.7 % (11.0-15.5); WHITE BLOOD COUNT (AUTO) 9.2 K/uL (4.8-10.8)
[2018-11-21] MEDS: CARBIDOPA-LEVODOPA 25-100 TAB PO SCH ×3 (06:03→16:17)
[2018-11-21 06:16] LABS: ALBUMIN 2.7 g/dL (3.5-5.0); BILIRUBIN,TOTAL 0.4 mg/dL (0.2-1.0); CREATININE 1.1 mg/dL (0.5-1.5); POTASSIUM 3.9 mmol/L (3.5-5.1); TOTAL PROTEIN, SERUM 6.4 g/dL (6.0-8.3)
[2018-11-21] MEDS: IPRATROPIUM/ALBUTEROL SULFATE 3 ML SOLUTION IH SCH ×2 (06:46→13:19)
[2018-11-21 08:00] VITALS: BP 97/53
[2018-11-21] MEDS: CETIRIZINE HCL 5 MG TABLET PO SCH (08:59)
[2018-11-21] MEDS: OLANZAPINE 5 MG TAB PO SCH (08:59)
[2018-11-21] MEDS: APIXABAN 2.5 MG TABLET PO SCH (08:59)
[2018-11-21] MEDS: CARVEDILOL 6.25 MG TABLET PO SCH (09:00)
[2018-11-21] MEDS: CLOPIDOGREL BISULFATE 75 MG TAB PO SCH (09:00)
[2018-11-21] MEDS: CYCLOSPORINE OU SCH (09:00)
[2018-11-21] MEDS: FAMOTIDINE 20MG TAB 20 MG TAB PO SCH (09:00)
[2018-11-21] MEDS: SACUBITRIL PO SCH (09:00)
[2018-11-21] MEDS: VALSARTAN PO SCH (09:00)
[2018-11-21] MEDS: VITAMIN D3 2000 UNIT PO SCH (09:00)
[2018-11-21] MEDS: DIVALPROEX SODIUM 250 MG TABLET.DR PO SCH (09:01)
[2018-11-21] MEDS: POTASSIUM CHLORIDE 20 MEQ ERTAB PO SCH (09:01)
[2018-11-21] MEDS: DONEPEZIL HCL 5 MG TAB PO SCH (09:01)
[2018-11-21] MEDS: FUROSEMIDE 40 MG TABLET PO SCH ×2 (09:01→16:17)
[2018-11-21] MEDS: AMANTADINE HCL 100 MG CAPSULE PO SCH (09:01)
[2018-11-21 12:00] VITALS: BP 89/52
--- NOTE | 2018-11-21 16:27 | NUR ---
PATIENT DISCHARGE PATIENT DISCHARGED, IV DISCONTINUED, CATHLON INTACT, BLEEDING CONTROLLED, PATIENT TOLERATED WITHOUT INCIDENT.
== END 2018-11-21 17:00 | disposition home or self-care (01) | DRG 291 ==
LOC: EDH 15:23 → OBSVTOIN 17:07 → EDHIP 17:07 → 3BH 18:31
PROVIDERS: ADMIT Internal Medicine; ATTEND Internal Medicine
DX: I11.0 Hypertensive heart disease with heart failure (principal); J96.91 Respiratory failure, unspecified with hypoxia; I50.33 Acute on chronic diastolic (congestive) heart failure; E78.5 Hyperlipidemia, unspecified; F02.80 Dementia in other diseases classified elsewhere, unspecified severity, without behavioral disturbance, psychotic disturbance, mood disturbance, and anxiety; F32.9 Major depressive disorder, single episode, unspecified; G20 Parkinson's disease; I25.10 Atherosclerotic heart disease of native coronary artery without angina pectoris; J44.9 Chronic obstructive pulmonary disease, unspecified; Z86.73 Personal history of transient ischemic attack (TIA), and cerebral infarction without residual deficits
CPT/HCPCS: 36415; 71045; 80048; 80053; 81001; 83880; 84484; 85025; 85027; 87040; 87088; 87804; 93005; 94640; 94664; 97039; A6250; G0378; J0696; J1940; J1956

== ENCOUNTER → 2019-02-03 | Outpatient (CLI) | payer MEDICARE ==
[~2019-02-03] MED LIST changes: -BENZ-39 PO; -BISA5TAB12 PO; -CHOL200016 PO; -CLOP75TA14 PO; +DIVA500T2 PO; -DONE10TA43 PO; +DONE5TAB33 PO; +FEBU80TA PO; -FURO20TA4 PO; +FURO20TA6 PO; -LACT10SO8 PO; -LACT10SO9 PO; -LOPE2CAP PO
== END | disposition home or self-care (01) ==
LOC: OIH 15:19
PROVIDERS: ATTEND Internal Medicine
DX: I50.21 Acute systolic (congestive) heart failure (principal)
CPT/HCPCS: 71046

== ENCOUNTER → 2019-02-19 | Outpatient (CLI) | payer MEDICARE | END | disposition home or self-care (01) | LOC: RAH 09:32 | PROVIDERS: ATTEND Internal Medicine | DX: I50.9 Heart failure, unspecified (principal); K44.9 Diaphragmatic hernia without obstruction or gangrene; M43.8X4 Other specified deforming dorsopathies, thoracic region; Z95.0 Presence of cardiac pacemaker | CPT/HCPCS: 71046 ==